=== PATIENT | male | born 1980 | race Caucasian/White ===

== ENCOUNTER 2019-02-11 13:31 | Emergency (ER) | payer OTHER ==
[~2019-02-11] VITALS: Ht 190.5 cm; Wt 92.1 kg
[2019-02-11] MEDS ORDERED: Lidocaine HCl 2% Jelly 6ml Tube TOPIC ONE ×3 (13:42→16:00)
[2019-02-11] MEDS ORDERED: HYDROcodone/Acetamin 5/325 tab ORAL ONE (13:45)
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
[2019-02-11] MEDS ORDERED: NKM (13:46)
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
[2019-02-11 13:51] VITALS: BP 108/70
--- NOTE | 2019-02-11 13:59 | NUR ---
ED Nurse Note: X-ray at bedside.
--- NOTE | 2019-02-11 14:16 | NUR ---
ED Nurse Note: x-ray done at bedside.
--- NOTE | 2019-02-11 14:40 | NUR ---
ED Nurse Note: Received a verbal order for Lidocaine Jelly 2% and bacitracin. brought them to ERMD at bedside.
--- NOTE | 2019-02-11 14:50 | NUR ---
ED Nurse Note: Clavible strap applied and girlfriend at bedside educated how to remove it from the back.
[2019-02-11] MEDS ORDERED: Bacitracin Oint UD TOPIC ONE ×2 (14:52→16:00)
[2019-02-11] MEDS ORDERED: NORCO 5-325 TA1 EACH ORAL (14:55)
[2019-02-11] MEDS ORDERED: IBUPROFEN600 MG ORAL (14:55)
[2019-02-11] MEDS ORDERED: BACITRACIN ZIN1 EACH TOPIC (14:55)
--- NOTE | 2019-02-11 15:20 | NUR ---
ED Nurse Note: sling was provided too for when clavicle strap removed.
[2019-02-11 15:30] VITALS: BP 111/75
--- NOTE | 2019-02-11 15:30 | NUR ---
ER DISCHARGE NOTE: Patient is cleared to be discharged per ERMD after clavicle strap and sling applied with instruction, pt is aox4, on room air, with stable vital signs. pt was given dc and prescription instructions, pt was able to verbalize understanding, pt id band removed. pt is able to ambulate with steady gait. pt took all belongings.
--- NOTE | 2019-02-12 10:51 | Diagnostic Imaging Report ---
Indication: I shoulder Technique: 3 views of the right shoulder Comparison: none Findings: There is a fracture of the mid to distal right clavicle. This is angulated. No humeral or scapular fracture demonstrated. Joint spaces are preserved Impression: Positive for right clavicular fracture This agrees with the preliminary interpretation reported by the emergency room physician in the electronic medical record
--- NOTE | 2019-02-12 10:52 | Diagnostic Imaging Report ---
Indication: Pain, trauma Technique: 2 views of the right ribs Comparison: none Findings: There is an angulated fracture of the mid to distal clavicle. No acute rib fractures. No gross pneumothorax. Impression: Positive for clavicular fracture
== END 2019-02-11 15:30 | disposition home or self-care (01) ==
LOC: EDSEX 13:31 → EMR 14:05
DX: S42.021A Displaced fracture of shaft of right clavicle, initial encounter for closed fracture (principal); S50.311A Abrasion of right elbow, initial encounter; S70.311A Abrasion, right thigh, initial encounter; V19.9XXA Pedal cyclist (driver) (passenger) injured in unspecified traffic accident, initial encounter; Y92.9 Unspecified place or not applicable
CPT/HCPCS: 29105; 99284